=== PATIENT | male | born 1990 | race Two or more races ===

== ENCOUNTER 2025-02-12 18:14 | Inpatient (IN) | payer OTHER ==
[~2025-02-12] VITALS: Ht 170.2 cm; Wt 70.4 kg
--- NOTE | 2025-02-12 18:39 | ED.PDOC ---
General HPI Comments 34-year-old male who came to ER for right flank pains. Started experiencing right flank pains last night progressively worsening today. Noted episode of nausea and vomiting. Denies any dysuria or gross hematuria, but claims relief of pain whenever he urinates. Was seen at a Hospital earlier, diagnosed with kidney stones. Patient transferred here for further evaluation and management. 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 Allergies: Coded Allergies: NO KNOWN ALLERGIES (Unverified , 02/12/25) Home Meds Active Scripts Tamsulosin Hcl (Flomax) 0.4 Mg Cap, 0.4 MG PO QPM for 14 Days, #14 CAP Prov:KELLY SHAVER RESIDENT 02/14/25 Acetaminophen (Acetaminophen) 325 Mg Tab, 650 MG PO Q4HP PRN for 7 Days, #70 TAB Prov:KELLY SHAVER RESIDENT 02/14/25 Information Source: Patient, Emergency Med Personnel Mode of Arrival: EMS Severity: Moderate Inability to void: Mild Timing: Hours Duration: Intermittent Has not urinated for: Minutes Prehospital treatment: None Onset: Spontaneous Symptoms: Urgency History of: None Location: (R) Flank associated signs and symptoms: Nausea, Vomiting, Flank Pain, Urgency Past Medical History PAST MEDICAL HISTORY: Denies Surgical History: Denies all surgeries Family History Family History: Reviewed,noncontributory to illness Social History Smoker: Non-Smoker Alcohol: Denies ETOH Use Drugs: Denies Drug Use Lives In: Home Constitutional: denies: chills, diaphoresis, fatigue, fever, malaise, sweats, weakness, others EENTM: denies: blurred vision, double vision, ear bleeding, ear discharge, ear drainage, ear pain, ear ringing, eye pain, eye redness, hearing loss, mouth pain, mouth swelling, nasal discharge, nose bleeding, nose congestion, nose pain, photophobia, tearing, throat pain, throat swelling, voice changes, others Respiratory: denies: cough, hemoptysis, orthopnea, SOB at rest, shortness of breath, SOB with excertion, stridor, wheezing, others Cardiovascular: denies: chest pain, dizzy spells, diaphoresis, Dyspnea on exertion, edema, irregular heart beat, left arm pain, lightheadedness, palpitations, PND, syncope, others Gastrointestinal: denies: abdomen distended, abdominal pain, blood streaked bowels, constipated, diarrhea, dysphagia, difficulty swallowing, hematemesis, melena, nausea, poor appetite, poor fluid intake, rectal bleeding, rectal pain, vomiting, others Genitourinary: reports: flank pain (right); denies: burning, dysuria, frequen cy, hematuria, incontinence, penile discharge, penile sore, pain, testicle pain, testicle swelling, urgency, others Neurological: denies: dizziness, fainting, headache, left sided numbness, left sided weakness, numbness, paresthesia, pre-existing deficit, right sided numbness, right sided weakness, seizure, speech problems, tingling, tremors, weakness, others Musculoskeletal: denies: back pain, gout, joint pain, joint swelling, muscle pain, muscle stiffness, neck pain, others Integumetry: denies: bruises, change in color, change in hair/nails, dryness, laceration, lesions, lumps, rash, wounds, others Allergic/Immunocompromised: denies: Difficulty Healing, Frequent Infections, Hives, Itching, others Hematologic/Lymphatic: denies: anemia, blood clots, easy bleeding, easy bruisi ng, swollen glands, others Endocrine: denies: excessive hunger, excessive sweating, excessive thirst, exce ssive urination, flushing, intolerance to cold, intolerance to heat, unexplained weight gain, unexplained weight loss, others Psychiatric: denies: anxiety, bipolar disorder, depression, hopeless, panic disorder, schizophrenia, sleepless, suicidal, others Physical Exam General Appearance: No Apparent Distress, Normal HEENT: Normal ENT Inspection, Pharynx Normal, TMs Normal Neck: Full Range of Motion, Non-Tender, Normal, Normal Inspection Respiratory: Chest Non-Tender, Lungs Clear, No Accessory Muscle Use, No Respi ratory Distress, Normal Breath Sounds Cardiovascular: No Edema, No JVD, No Murmur, No Gallop, Normal Peripheral Pulses, Regular Rate/Rhythm Breast Exam: Deferred Gastrointestinal: No Organomegaly, Non Tender, No Pulsatile Mass, Normal Bowel Sounds, Soft Genitalia: Deferred Pelvic: Deferred Rectal: Deferred Extremities: No calf tenderness, Normal capillary refill, Normal inspection, Normal range of motion, Non-tender, No pedal edema Musculoskeletal : Apperance: Normal Neurologic: Alert, label drier II-XII nml as Tested, No Motor Deficits, Normal Affect, Normal Mood, No Sensory Deficits Cerebellar Function: Normal Reflexes: Normal Skin: Dry, Normal Color, Warm Lymphatic: No Adenopathy Was a procedure done? Was a procedure done?: No Differential Diagnosis Kidney stone (Female): N/A Kidney stone (Male): Pyelonephritis, Renal failure, Strain, Urinary obstruction, Urolithiasis, Renal infarction, Urinary tract infection Urinary Problem (Male): Urethritis, Urinary Retention, Urolithiasis, UTI X-Ray, Labs, Meds, VS Vital Signs Date Time Temp Pulse Resp B/P (MAP) Pulse Ox O2 Delivery O2 Flow Rate FiO2 02/12/25 19:36 98.1 70 15 120/84 (96) 95 98.1 02/12/25 19:36 72 15 96 Room Air* 0 21 02/12/25 18:50 98.2 70 12 120/74 (89) 97 98.2 02/12/25 18:50 68 16 97 Room Air* 0 21 02/12/25 18:34 98.2 70 18 107/77 (87) 98 98.2 Lab Test 02/12/25 18:59 02/12/25 18:44 Range/Units Urine Color Colorless Yellow Urine Clarity Clear Clear Urine pH 5.5 5.0-9.0 Urine Specific [place] 1.005 1.001-1.035 Urine Protein Negative Negative Urine Ketones Negative Negative Urine Blood Negative Negative /uL Urine Nitrite Negative Negative Urine Bilirubin Negative Negative Urine Urobilinogen Normal Negative mg/dL Urine Leukocyte Esterase Negative Negative /uL Urine RBC None seen 0 - 3 /hpf Urine Microscopic WBC 1 0-3 /HPF Urine Squamous Epithelial Cells None seen <5 /hpf Urine Bacteria None seen None Seen /hpf Urine Glucose Normal Normal mg/dL White Blood Count 10.0 4.4-10.8 10^3/uL Red Blood Count 5.08 4.5-5.90 10^6/uL Hemoglobin 14.9 13.5-17.5 g/dL Hematocrit 43.5 41.0-53.0 % Mean Corpuscular Volume 85.7 80.0-100.0 fL Mean Corpuscular Hemoglobin 29.3 28.0-32.0 pg Mean Corpuscular Hemoglobin Concent 34.2 32.0-36.0 g/dL Red Cell Distribution Width 12.7 11.8-14.3 % Platelet Count 217 140-450 10^3/uL Mean Platelet Volume 7.2 6.9-10.8 fL Neutrophils (%) (Auto) 70.1 37.0-80.0 % Lymphocytes (%) (Auto) 18.4 10.0-50.0 % Monocytes (%) (Auto) 10.5 0.0-12.0 % Eosinophils (%) (Auto) 0.8 0.0-7.0 % Basophils (%) (Auto) 0.2 0.0-2.0 % Neutrophils # (Auto) 7.0 1.6-8.6 10 ^3/uL Lymphocytes # (Auto) 1.8 0.4-5.4 10 ^3/uL Monocytes # (Auto) 1.0 0-1.3 10 ^3/uL Eosinophils # (Auto) 0.1 0-0.8 10 ^3/uL Basophils # (Auto) 0 0-0.2 10 ^3/uL Nucleated Red Blood Cells 0.1 % Sodium Level 143 136-145 mmol/L Potassium Level 4.4 3.5-5.1 mmol/L Chloride Level 111 H 98-107 mmol/L Carbon Dioxide Level 25 20-31 mmol/L Anion Gap 7 5-15 Blood Urea Nitrogen 14 9-23 mg/dL Creatinine 1.70 H 0.700-1.30 mg/dL Glomerular Filtration Rate Calc 54 >90 mL/min BUN/Creatinine Ratio 8.2 L 10.0-20.0 Serum Glucose 98 74-106 mg/dL Calcium Level 9.0 8.7-10.4 mg/dL Time of 1ST Reevaluation: 18:27 Reevaluation 1ST: Unchanged Patient Education/Counseling: Diagnosis, Treatment Family Education/Counseling: No Family Present Departure 1 Departure Time of Disposition: 18:03 (Patient with an FIDE and acute flank pain. We will admit patient for workup) Impression: Primary Impression: FIDE (acute kidney injury) Additional Impression: Flank pain Disposition: 09 ADMITTED INPATIENT Admit to: Med Surg Condition: Serious e-Prescriptions Tamsulosin Hcl (Flomax) 0.4 Mg Cap 0.4 MG PO QPM for 14 Days, #14 CAP Prov: KELLY SHAVER RESIDENT 02/14/25 Acetaminophen (Acetaminophen) 325 Mg Tab 650 MG PO Q4HP PRN for 7 Days, #70 TAB Prov: EHSAN SHAVERNA RESIDENT 02/14/25 Critical Care Note Critical Care Time?: Yes Critical care comment: Intractable flank pain Authorized and Performed by: Alexandr Blair MD Total critical care time: Approximately 42 minutes Due to a high probability of clinically significant, life threatening deteriora tion, the patient required my highest level of preparedness to intervene emergently and I personally spent this critical care time directly and personally managing the patient. This critical care time included obtaining a history; examining the patient; pulse oximetry; ordering and review of studies; arranging urgent treatment with development of a management plan; evaluation of patient's response to treatment; frequent reassessment; and, discussions with other providers. This critical care time was performed to assess and manage the high probability of imminent, life-threatening deterioration that could result in multi-organ failure. It was exclusive of separately billable procedures and treating other patients and teaching time. Please see my other sections and the rest of the note for further information on patient assessment and treatment. Stability Stability form required: No Heart Score Heart Score: Heart Score Response (Comments) Value History N/A 0 EKG N/A 0 Age N/A 0 Risk Factors N/A 0 Troponin N/A 0 Total 0 I personally scribed for ALEXANDR BLAIR MD ([email or web address]) on 02/12/25 at 18:39. Electronically submitted by Mac Mota ([email or web address]). ALEXANDR BLAIR MD February 12, 2025 18:39
[2025-02-12 18:50] VITALS: PULSE 68; RESP 16; O2SAT 97
[2025-02-12] MEDS: SODIUM CHLORIDE 0.9% 1,000 ML IV ONE (18:50)
[2025-02-12 18:54] LABS: Basophils # (auto) 0 10 ^3/uL (0-0.2); Basophils % (auto) 0.2 % (0.0-2.0); Eosinophils # (auto) 0.1 10 ^3/uL (0-0.8); Eosinophils % (auto) 0.8 % (0.0-7.0); Hematocrit 43.5 % (41.0-53.0); Hemoglobin 14.9 g/dL (13.5-17.5); Lymphocytes # (auto) 1.8 10 ^3/uL (0.4-5.4); Lymphocytes % (auto) 18.4 % (10.0-50.0); Mean Corpuscular Hemoglobin 29.3 pg (28.0-32.0); Mean Corpuscular Hgb Conc. 34.2 g/dL (32.0-36.0); Mean Corpuscular Volume 85.7 fL (80.0-100.0); Monocytes % (auto) 10.5 % (0.0-12.0); Neutrophils % (auto) 70.1 % (37.0-80.0); Nucleated Red Blood Cells % 0.1 %; Platelet Count (auto) 217 10^3/uL (140-450); Red Blood Cells 5.08 10^6/uL (4.5-5.90); Red Cell Distribution Width 12.7 % (11.8-14.3)
[2025-02-12 19:06] LABS: Chloride 111 mmol/L (98-107); Potassium 4.4 mmol/L (3.5-5.1); Sodium 143 mmol/L (136-145)
[2025-02-12 19:07] LABS: Urine Bacteria None Seen /hpf (None Seen)
[2025-02-12 19:07] LABS: Anion Gap 7 (5-15); Carbon Dioxide 25 mmol/L (20-31)
[2025-02-12 19:12] LABS: BUN/Creatinine Ratio 8.2 (10.0-20.0); Blood Urea Nitrogen 14 mg/dL (9-23); Glucose 98 mg/dL (74-106)
[2025-02-12 19:17] LABS: Urine Blood Negative /uL (Negative); Urine Clarity Clear (Clear); Urine Color Colorless (Yellow); Urine Protein, UAD Negative (Negative); Urine Specific Gravity 1.005 (1.001-1.035); Urine Squamous Epithelial Cell None Seen /hpf (<5); Urine Urobilinogen Normal (Negative); Urine WBC 1 /HPF (0-3); Urine pH 5.5 (5.0-9.0)
[2025-02-12 19:36] VITALS: PULSE 72; RESP 15; O2SAT 96
[2025-02-12] MEDS ORDERED: DOCUSATE SOD 100 MG CAP PO PRN (20:45)
[2025-02-12] MEDS ORDERED: ONDANSETRON HCL 4 MG/2 ML VIAL IV PRN (20:45)
--- NOTE | 2025-02-12 21:18 | DVHHP2 ---
History of Present Illness Reason for Visit: Acute renal injury History of Present Illness The patient is a 34-year-old male who denies past medical history presented to [facility] ED with complaint of right flank pain. Patient reports he has been experiencing right flank pain for the past 1 day progressively get wo rse today that prompted this visit. Patient was seen and evaluated in the ED, laboratory data shows WBC 10.0, platelets 217, sodium 143, potassium 4.4, BUN 14, creatinine 1.70, glucose 98. Please see medication orders section in the computer. On my assessment, the patient denied chest pain, no headache, no dizziness, no diaphoresis, no shortness of breaths, no nausea, no vomiting, no fever, no chills. No other modifying factor or other associated signs and symptoms noted. The patient was admitted to the hospital for further evaluation and medical management. Past Medical History Denies past medical history Past Surgical History Denies all surgeries Family History Reviewed, noncontributory to the management of this case. Past Social History The patient lives at home, denies smoking, alcohol or illicit drugs abuse. Review of Systems Constitutional: No: Fever, Chills, Sweats, Weakness, Malaise, Other Eyes: No: Pain, Vision change, Conjunctivae inflammation, Eyelid inflammation, Other, Redness ENT: No: Ear pain, Ear discharge, Nose pain, Nose discharge, Nose congestion, Mouth pain, Mouth swelling, Throat pain, Throat swelling, Other Respiratory: No: Cough, Dry, Shortness of breath, SOB with excertion, Wheezing, Hemoptysis, Pleuritic Pain, Sputum, Wheezing, Other Cardiovascular: No: Chest Pain, Palpitations, Orthopnea, Paroxysmal Noc. Dyspnea, Edema, Lt Headedness, Other Gastrointestinal: No: Nausea, Vomiting, Abdominal Pain, Diarrhea, Constipation, Melena, Hematochezia, Other Genitourinary: No Dysuria, No Frequency, No Incontinence, No Hematuria, No Retention; Other (Flank pain) Musculoskeletal: No: other, neck pain, shoulder pain, arm pain, back pain, hand pain, leg pain, foot pain Skin: No: Rash, Lesions, Jaundice, Bruising, Other Neurological: No: Weakness, Numbness, Incoordination, Change in speech, Confusi on, Seizures, Other Allergies: Coded Allergies: NO KNOWN ALLERGIES (Unverified , 02/12/25) Medications Current Medications Medications Dose Ordered Sig/Kari Route Start Time Stop Time Status Last Admin Dose Admin Sodium Chloride 10 ml Q8HR IV 02/12/25 22:00 Acetaminophen/ Hydrocodone Bitart 1 tab Q4HP PRN PO 02/12/25 20:45 Ondansetron HCl 4 mg Q4HP PRN IV 02/12/25 20:45 Docusate Sodium 100 mg BIDPRN PRN PO 02/12/25 20:45 Acetaminophen 650 mg Q6HP PRN PO 02/12/25 20:45 Morphine Sulfate 2 mg Q4HPRN PRN IV 02/12/25 21:00 Exam Vital Signs Vital Signs Date Time Temp Pulse Resp B/P (MAP) Pulse Ox O2 Delivery O2 Flow Rate FiO2 02/12/25 19:36 98.1 70 15 120/84 (96) 95 98.1 02/12/25 19:36 Room Air* 0 21 General Appearance: Alert, Oriented X3, Cooperative, No acute distress HEENT: Atraumatic, PERRLA, EOMI, Mucous membr. moist/pink Respiratory: Clear to auscultation, Normal air movement Cardiovascular: Regular rate, Normal S1, Normal S2, No murmurs Abdominal: Normal bowel sounds, Soft, No tenderness, No hepatospenomegaly, No masses Extremities: No clubbing, No cyanosis, No edema, Normal pulses, No tenderness/swelling Skin: No rashes, No breakdown, No significant lesion Neuro: Normal gait, Normal speech, Strength at 5/5 X4 ext, Normal tone, Sensation intact, Cranial nerves 3-12 NL, Reflexes 2+ Psych/Mental Status: Mental status NL, Mood NL Labs/Xrays Labs Test 02/12/25 18:59 02/12/25 18:44 Range/Units Urine Color Colorless Yellow Urine Clarity Clear Clear Urine pH 5.5 5.0-9.0 Urine Specific [place] 1.005 1.001-1.035 Urine Protein Negative Negative Urine Ketones Negative Negative Urine Blood Negative Negative /uL Urine Nitrite Negative Negative Urine Bilirubin Negative Negative Urine Urobilinogen Normal Negative mg/dL Urine Leukocyte Esterase Negative Negative /uL Urine RBC None seen 0 - 3 /hpf Urine Microscopic WBC 1 0-3 /HPF Urine Squamous Epithelial Cells None seen <5 /hpf Urine Bacteria None seen None Seen /hpf Urine Glucose Normal Normal mg/dL White Blood Count 10.0 4.4-10.8 10^3/uL Red Blood Count 5.08 4.5-5.90 10^6/uL Hemoglobin 14.9 13.5-17.5 g/dL Hematocrit 43.5 41.0-53.0 % Mean Corpuscular Volume 85.7 80.0-100.0 fL Mean Corpuscular Hemoglobin 29.3 28.0-32.0 pg Mean Corpuscular Hemoglobin Concent 34.2 32.0-36.0 g/dL Red Cell Distribution Width 12.7 11.8-14.3 % Platelet Count 217 140-450 10^3/uL Mean Platelet Volume 7.2 6.9-10.8 fL Neutrophils (%) (Auto) 70.1 37.0-80.0 % Lymphocytes (%) (Auto) 18.4 10.0-50.0 % Monocytes (%) (Auto) 10.5 0.0-12.0 % Eosinophils (%) (Auto) 0.8 0.0-7.0 % Basophils (%) (Auto) 0.2 0.0-2.0 % Neutrophils # (Auto) 7.0 1.6-8.6 10 ^3/uL Lymphocytes # (Auto) 1.8 0.4-5.4 10 ^3/uL Monocytes # (Auto) 1.0 0-1.3 10 ^3/uL Eosinophils # (Auto) 0.1 0-0.8 10 ^3/uL Basophils # (Auto) 0 0-0.2 10 ^3/uL Nucleated Red Blood Cells 0.1 % Sodium Level 143 136-145 mmol/L Potassium Level 4.4 3.5-5.1 mmol/L Chloride Level 111 H 98-107 mmol/L Carbon Dioxide Level 25 20-31 mmol/L Anion Gap 7 5-15 Blood Urea Nitrogen 14 9-23 mg/dL Creatinine 1.70 H 0.700-1.30 mg/dL Glomerular Filtration Rate Calc 54 >90 mL/min BUN/Creatinine Ratio 8.2 L 10.0-20.0 Serum Glucose 98 74-106 mg/dL Calcium Level 9.0 8.7-10.4 mg/dL Assessment/Plan Assessment/Plan Right flank pain Acute renal injury Plan 1. Admit to med surge unit 2. Breathing treatment 3. Pain control management 4. Management of fluids and electrolytes 5. Consultation for hospitalist 6. Diagnostic tests chest x-ray 7. DVT prophylaxis on SCDs 8. Repeat labs CBC, CMP in a.m. 9. Continue with current medical management 10. Treatment plan discussed with patient and RN. Patient verbalized understanding. Plan discussed with: Patient, Other (RN) My Orders Orders - SHERRELL SWAN DNP Procedure Category Date Status Time *Dr. Dustin Massey CONS 02/12/25 Transmitted -[place] 20:44 Allergies FELIX 02/12/25 In Process 20:44 Code Status CODE 02/12/25 Transmitted 20:44 Sodium Chloride Lock PHA 02/12/25 In Process (Saline Lock Ns) 22:00 Oxygen Per Hour RT 02/12/25 Transmitted 20:44 Hydrocodone-Acet PHA 02/12/25 In Process 5/325mg Tab ([place] 20:45 Ondansetron Hcl PHA 02/12/25 In Process (Zofran) 20:45 Docusate Sodium PHA 02/12/25 In Process Capsule ([place] 20:45 Complete Blood Count LAB 02/13/25 Verified 04:00 Comprehensive LAB 02/13/25 Verified Metabolic Panel 04:00 Cardiac DIET 02/13/25 Transmitted Diet-2gna,Lofat,Lochol Breakfast Condition: Serious FELIX 02/12/25 In Process 20:44 Acetaminophen Tablet PHA 02/12/25 In Process (Tylenol Tablet) 20:45 Bedrest With Bathroom FELIX 02/12/25 In Process Privileg 20:44 Sequential FELIX 02/12/25 In Process Compression Device Morphine Sulfate PHA 02/12/25 In Process Injection 21:00 Problem List: (1) Right flank pain (2) Acute renal injury Date of Service: February 12, 2025 Billing Provider: SHERRELL SWAN DNP Common Visit Codes: [id number] INP/OBS CARE (MOD) SHERRELL SWAN DNP February 12, 2025 21:18
[2025-02-12] MEDS ORDERED: MORPHINE SULFATE INJ 2 MG/ml SYRG IV PRN (21:30)
[2025-02-12] MEDS ORDERED: NITROGLYCERIN 0.4 MG SL TAB SL PRN (21:30)
[2025-02-12] MEDS: SODIUM CHLOR 0.9% PF (SALINE LOCK) 10ML VIAL/SYR IV SCH (22:07)
[2025-02-12] MEDS: ACETAMINOPHEN 325 MG TAB PO PRN (23:47)
[2025-02-12 23:52] VITALS: BP 119/77; PULSE 69; RESP 16; TEMP 97.7; O2SAT 98
[2025-02-13] VITALS (7 sets, daily range): BP systolic 108–139; BP diastolic 58–92; PULSE 69–89; RESP 14–18; TEMP 97.7–98.7; O2SAT 94–100
[2025-02-13] MEDS: HYDROcodone-ACET 5/325MG TAB PO PRN ×3 (00:29→18:08)
[2025-02-13 06:19] LABS: Basophils # (auto) 0.1 10 ^3/uL (0-0.2); Basophils % (auto) 0.5 % (0.0-2.0); Eosinophils # (auto) 0.3 10 ^3/uL (0-0.8); Eosinophils % (auto) 2.7 % (0.0-7.0); Hematocrit 40.3 % (41.0-53.0); Lymphocytes # (auto) 2.8 10 ^3/uL (0.4-5.4); Lymphocytes % (auto) 29.7 % (10.0-50.0); Mean Corpuscular Hemoglobin 29.5 pg (28.0-32.0); Mean Corpuscular Hgb Conc. 34.8 g/dL (32.0-36.0); Monocytes # (auto) 1.1 10 ^3/uL (0-1.3); Monocytes % (auto) 11.6 % (0.0-12.0); Neutrophils # (auto) 5.2 10 ^3/uL (1.6-8.6); Neutrophils % (auto) 55.5 % (37.0-80.0); Platelet Count (auto) 203 10^3/uL (140-450); Red Blood Cells 4.75 10^6/uL (4.5-5.90); Red Cell Distribution Width 12.9 % (11.8-14.3); White Blood Cell 9.4 10^3/uL (4.4-10.8)
[2025-02-13 06:38] LABS: Alanine Aminotransferase 32 U/L (7-40); Albumin 3.7 g/dL (3.2-4.8); Alkaline Phosphatase 50 U/L (46-116); Anion Gap 8 (5-15); Aspartate Aminotransferase 24 U/L (13-40); BUN/Creatinine Ratio 7.8 (10.0-20.0); Blood Urea Nitrogen 13 mg/dL (9-23); Calcium 9.1 mg/dL (8.7-10.4); Carbon Dioxide 24 mmol/L (20-31); Glucose 94 mg/dL (74-106); Potassium 4.2 mmol/L (3.5-5.1); Sodium 143 mmol/L (136-145); Total Protein 5.9 g/dL (5.7-8.2)
[2025-02-13 06:39] LABS: Bilirubin, Total 0.7 mg/dL (0.2-1.0); Chloride 111 mmol/L (98-107)
[2025-02-13] MEDS: MORPHINE SULFATE INJ 2 MG/ml SYRG IV PRN (06:48)
--- NOTE | 2025-02-13 11:06 | DVH ---
US KIDNEY HISTORY: rule out stone, obstruction COMPARISON: None TECHNIQUE: Transverse and longitudinal grayscale and color doppler images were obtained of the kidney s and bladder. FINDINGS: Right kidney: Size: 12 cm Cortical thickness: Normal Echogenicity: Normal Stones: None Masses: None Hydronephrosis: yes Ureters: Not well visualized. Other: None Left kidney: Size: 11 cm Cortical thickness: Normal Echogenicity: Normal Stones: None Masses: None Hydronephrosis: None Ureters: Not well visualized. Other: None Bladder: Possible bladder stone Other: None. IMPRESSION: Possible small 0.7 cm bladder stone. Mild right renal hydronephrosisl.
[2025-02-13] MEDS: TAMSULOSIN HYDROCHLORIDE 0.4 MG CAP PO ONE (12:32)
[2025-02-13] MEDS: SODIUM CHLORIDE 0.9% 1,000 ML IV SCH (12:35)
[2025-02-13] MEDS ORDERED: ACETAMINOPHEN 325 MG TAB PO PRN (13:15)
--- NOTE | 2025-02-13 14:02 | DVHPNRES ---
Progress Note Date Seen: February 13, 2025 Resident Creating Document: KELLY SHAVER RESIDENT Has the PT tested + for MRSA If YES, has PT been informed?: No Medical Necessity Reason Pt with a Central, PICC or Fol: No Medical Necessity Reason History of Present Illness The patient is a 34-year-old male who denies past medical history presented to [facility] ED with complaint of right flank pain. Patient reports he has been experiencing right flank pain for the past 1 day progressively get worse today that prompted this visit. Patient was seen and evaluated in the ED, laboratory data shows WBC 10.0, platelets 217, sodium 143, potassium 4.4, BUN 14, creatinine 1.70, glucose 98. Please see medication orders section in the computer. On my assessment, the patient denied chest pain, no headache, no dizziness, no diaphoresis, no shortness of breaths, no nausea, no vomiting, no fever, no chills. No other modifying factor or other associated signs and symptoms noted. The patient was admitted to the hospital for further evaluation and medical management. Past Medical History: Denies past medical history Past Surgical History: Denies all surgeries Family History: Reviewed, noncontributory to the management of this case. Past Social History:The patient lives at home, denies smoking, alcohol or illicit drugs abuse. PN: 02/13/2025 Patient is a 34-year-old male with no known past medical history presented to the ED with chief complaint of right flank pain. According to the patient it started with lower back pain, then to his lower abdomen. The thought he might having a UTI. But by the next day, he started having the right flank pain with radiation to his groin. The pain was severe colicky in nature and with radiation to the groin. There was no associated hematuria or turbinate hematuria there was no discharges there was no fever there was no chills. Patient has been intermittent only with his no extra or face. Thus patient reported to his [facility] [place] patient had a scan done then which revealed a bilateral nephrolithiasis however the right nephrolithiasis was notable for obstruction in the ureterovesical junction causing hydronephrosis on the right side thus patient was referred to deviate for further evaluation. In the ED, patient does have right abdominal pain however his vitals were grossly unremarkable, lab work revealed normal WBC however this elevated creatinine of 1.7 and renal US showed Possible small 0.7 cm bladder stone. Mild right renal hydronephrosisl. Started on fluid, pain medications and tamsulosin. Urology has been consulted for evaluation. Subjective Review of Systems Constitutional: Denies fever no chills, uncomfortable HEENT: Denies headache, ear pain, ear discharges, conjunctivitis, nasal discharge throat pain Cardiovascular: Denies chest pain, palpitation, orthopnea, PND, or pedal edema Respiratory: Denies shortness of breath, cough cough, sputum production, hemoptysis, GI: Denies abdominal pain, nausea, vomiting, diarrhea, hematemesis, hematochezia, : right flank pain, lower abdominal pain Endocrine: Denies unintentional weight gain or weight loss, feeling of hot flashes, Harris: Denies easy bruising, bleeding disorders, epistaxis Musculoskeletal: Denies joint pains, muscle aches Psych: No evidence of depression, yeimi, suicidal ideation Objective vital signs Vital Sign Date Time Temp Pulse Resp B/P (MAP) Pulse Ox O2 Delivery O2 Flow Rate FiO2 02/13/25 09:00 97.7 72 16 115/80 (92) 97 97.7 02/12/25 23:52 Room Air* 0 21 Total Intake and Output 02/12/25 02/12/25 02/13/25 15:00 23:00 07:00 Intake Total 400 ml Balance 400 ml medications Current Medications Medications Dose Ordered Sig/Kari Route Start Time Stop Time Status Last Admin Dose Admin Sodium Chloride 10 ml Q8HR IV 02/12/25 22:00 02/13/25 06:13 10 ML Ondansetron HCl 4 mg Q4HP PRN IV 02/12/25 20:45 Docusate Sodium 100 mg BIDPRN PRN PO 02/12/25 20:45 Morphine Sulfate 2 mg Q4HPRN PRN IV 02/12/25 21:00 Hold 02/13/25 06:48 2 MG Nitroglycerin 0.4 mg Q5MINP PRN SL 02/12/25 21:30 Morphine Sulfate 2 mg Q30M PRN IV 02/12/25 21:30 Sodium Chloride 1,000 ml @ 125 mls/hr Q8H IV 02/13/25 10:45 02/13/25 12:35 125 MLS/HR Tamsulosin HCl 0.4 mg QPM PO 02/13/25 18:00 Acetaminophen/ Hydrocodone Bitart 1 tab Q6HPRN PRN PO 02/13/25 13:15 Acetaminophen 650 mg Q4HP PRN PO 02/13/25 13:15 Acetaminophen/ Hydrocodone Bitart 1 tab Q4HP PRN PO 02/13/25 13:45 Examination General Appearance: Alert, Oriented X3, Cooperative, Mild-moderate distress HEENT: Atraumatic, PERRLA, EOMI, Mucous membrane moist/pink Respiratory: Clear to auscultation, Normal air movement Cardiovascular: Regular rate, Normal S1, Normal S2, No murmurs, no chest wall tenderness Abdominal: NO distention, LOWER abdominal tenderness, bowel sounds present, no scars noted Extremities: No clubbing, No cyanosis, No edema, Normal pulses, No tenderness/swelling Skin: No rashes, No breakdown, No significant lesion Neuro: Normal gait, Normal speech, Strength at 5/5 X4 ext, Normal tone, Sensation intact, Cranial nerves 3-12 NL, Reflexes 2+ Psych/Mental Status: Mental status NL, Mood NL laboratory and microbiology Laboratory Tests 02/13/25 06:01 Test 02/13/25 06:01 Range/Units Serum Glucose 94 74-106 mg/dL Problem List/Assessment/Plan Problem List/Assessment/Plan Assessment and plan Right flank pain likely secondary to obstructive nephrolithiasis --> Renal US: Possible small 0.7 cm bladder stone. Mild right renal hydronephrosis --> Pain management --> Fluid --> Strain urine --> Urology consult Hydronephrosis --> due to obstructive uropathy FIDE likely due to ureterovesicle junction obstruction --> Cr:1.71--> 1.67 Goal of care discussed for more than 25 minute full code Case and plan discussed with Dr. Garber Plan discussed with: Patient My Orders My Orders Orders - KELLY SHAVER RESIDENT Procedure Category Date Status Time Kidney US 02/13/25 Resulted 08:10 * Urology Consult CONS 02/13/25 Transmitted 10:31 Sodium Chloride 0.9% PHA 02/13/25 In Process 10:45 Tamsulosin PHA 02/13/25 In Process Hydrochloride (Flomax) 18:00 Hydrocodone-Acet PHA 02/13/25 In Process 5/325mg Tab ([place] 13:15 Acetaminophen Tablet PHA 02/13/25 In Process (Tylenol Tablet) 13:15 Strain All Urine For [facility] 02/13/25 In Process Stones 13:14 KELLY SHAVER RESIDENT February 13, 2025 14:02
[2025-02-13] MEDS: TAMSULOSIN HYDROCHLORIDE 0.4 MG CAP PO SCH (18:09)
[2025-02-14 00:47] VITALS: BP 124/87; PULSE 72; RESP 16; TEMP 98.1; O2SAT 98
[2025-02-14 05:00] VITALS: BP 122/81; PULSE 68; RESP 16; TEMP 98.2; O2SAT 96
[2025-02-14 06:42] LABS: Anion Gap 8 (5-15); Carbon Dioxide 25 mmol/L (20-31); Potassium 3.5 mmol/L (3.5-5.1); Sodium 144 mmol/L (136-145)
[2025-02-14 06:43] LABS: Calcium 9.1 mg/dL (8.7-10.4)
[2025-02-14 06:48] LABS: BUN/Creatinine Ratio 11.2 (10.0-20.0); Blood Urea Nitrogen 12 mg/dL (9-23); Chloride 111 mmol/L (98-107); Glucose 92 mg/dL (74-106)
[2025-02-14 09:00] VITALS: BP 117/74; PULSE 78; RESP 16; TEMP 98.2; O2SAT 97
--- NOTE | 2025-02-14 11:02 | DVHINCON2 ---
Date of service: February 14, 2025 Referring Physician hospitalist Reason for Consultation kidney stone History of Present Illness History Source: Patient, RN Notes, MD Notes Exam Limitations: No limitations HPI 34-year-old male with no known past medical history presented to the ED with chief complaint of right flank pain. According to the patient it started with lower back pain, then to his lower abdomen. The thought he might having a UTI. But by the next day, he started having the right flank pain with radiation to his groin. The pain was severe colicky in nature and with radiation to the groin. There was no associated hematuria or turbinate hematuria there was no discharges there was no fever there was no chills. Patient has been intermitten t only with his no extra or face. Thus patient reported to his [facility] patient had a scan done then which revealed a bilateral nephrolithiasis however the right nephrolithiasis was notable for obstruction in the ureterovesical junction causing hydronephrosis on the right side thus patient was referred to deviate for further evaluation. In the ED, patient does have right abdominal pain however his vitals were grossly unremarkable, lab work revealed normal WBC however this elevated creatinine of 1.7 and renal US showed Possible small 0.7 cm bladder stone. Mild right renal hydronephrosisl. Started on fluid, pain medications and tamsulosin. Urology has been consulted for evaluation. Home Meds No Active Prescriptions or Reported Meds Past Medical History Cardiac: No pertinent Hx Pulmonary: No pertinent Hx Central Nervous System: No pertinent Hx GI: No pertinent Hx Hemotology/Oncology: No pertinent Hx Hepatobiliary: No pertinent Hx Psychiatric: No pertinent Hx Musculoskeletal: No pertinent Hx Rheumotologic: No pertinent Hx Infectious Disease: No peritnent Hx ENT: No pertinent Hx Renal/: No pertinent Hx Endocrine: No pertinent Hx Dermatology: No pertinent Hx Patient Family History: Patient reports no known family medical history. Review of Systems Constitutional: No symptom reported Ears, Nose, & Throat: No symptom reported Eyes: No symptom reported Pulmonary/Respiratory: No symptom reported Cardiovascular: No symptom reported Gastrointestinal: No symptom reported Genitourinary: No symptom reported Musculoskeletal: No symptom reported Skin: No symptom reported Psychiatric: No symptom reported Endocrine: No symptom reported Hemotologic/Lymphatic: No symptom reported H&P Exam Vital Signs Vital Signs Date Time Temp Pulse Resp B/P (MAP) Pulse Ox O2 Delivery O2 Flow Rate FiO2 02/14/25 09:00 98.2 78 16 117/74 (88) 97 98.2 02/14/25 08:00 Room Air* 0 21 General Appeara: Well developed, Well nourished, Normal Appearance Neuro/Mental St: Alert, Oriented Appearance: Appropriate appearance, Appropriate insight Eye contact/ Speech: Cooperative, Good eye contact, Normal speech Skin Exam: Normal inspection, Normal color, Warm/dry Labs/Xrays [address] [address] Ph: [phone] DIAGNOSTIC IMAGING Diagnostic Imaging Report : [id number] Signed PATIENT: JEFFERY PEDRAZACCT: [id number] UNIT: [id number] : 1990 LOC: [facility] ROOM / BED: [facility] / A AGE / SEX: 34 / M ADM STATUS: ADM IN SERVICE 0810 ORDERING PHYSICIAN: KELLY SHAVER RESIDENT PROCEDURE(s): KIDUS - KIDNEY REASON: rule out stone, obstruction ORDER NUMBER(s): [id number], ACCESSION NUMBER(s): [id number] KIDNEY HISTORY: rule out stone, obstruction COMPARISON: None TECHNIQUE: Transverse and longitudinal grayscale and color doppler images were obtained of the kidneys and bladder. FINDINGS: Right kidney: Size: 12 cm Cortical thickness: Normal Echogenicity: Normal Stones: None Masses: None Hydronephrosis: yes Ureters: Not well visualized. Other: None Left kidney: Size: 11 cm Cortical thickness: Normal Echogenicity: Normal Stones: None Masses: None Hydronephrosis: None Ureters: Not well visualized. Other: None Bladder: Possible bladder stone Other: None. IMPRESSION: Possible small 0.7 cm bladder stone. Mild right renal hydronephrosisl. ATED BY: MYLES HUMPHREY MD DICTATED DATE/TIME: 02/13/251102 SIGNED BY: MYLES HUMPHREY MD SIGNED DATE/TIME: 02/13/251102 CC: Labs Test 02/14/25 05:52 02/13/25 06:01 02/12/25 18:59 Range/Units Sodium Level 144 136-145 mmol/L Potassium Level 3.5 3.5-5.1 mmol/L Chloride Level 111 H 98-107 mmol/L Carbon Dioxide Level 25 20-31 mmol/L Anion Gap 8 5-15 Blood Urea Nitrogen 12 9-23 mg/dL Creatinine 1.07 0.700-1.30 mg/dL Glomerular Filtration Rate Calc 94 >90 mL/min BUN/Creatinine Ratio 11.2 10.0-20.0 Serum Glucose 92 74-106 mg/dL Calcium Level 9.1 8.7-10.4 mg/dL White Blood Count 9.4 4.4-10.8 10^3/uL Red Blood Count 4.75 4.5-5.90 10^6/uL Hemoglobin 14.0 13.5-17.5 g/dL Hematocrit 40.3 L 41.0-53.0 % Mean Corpuscular Volume 85.0 80.0-100.0 fL Mean Corpuscular Hemoglobin 29.5 28.0-32.0 pg Mean Corpuscular Hemoglobin Concent 34.8 32.0-36.0 g/dL Red Cell Distribution Width 12.9 11.8-14.3 % Platelet Count 203 140-450 10^3/uL Mean Platelet Volume 7.4 6.9-10.8 fL Neutrophils (%) (Auto) 55.5 37.0-80.0 % Lymphocytes (%) (Auto) 29.7 10.0-50.0 % Monocytes (%) (Auto) 11.6 0.0-12.0 % Eosinophils (%) (Auto) 2.7 0.0-7.0 % Basophils (%) (Auto) 0.5 0.0-2.0 % Neutrophils # (Auto) 5.2 1.6-8.6 10 ^3/uL Lymphocytes # (Auto) 2.8 0.4-5.4 10 ^3/uL Monocytes # (Auto) 1.1 0-1.3 10 ^3/uL Eosinophils # (Auto) 0.3 0-0.8 10 ^3/uL Basophils # (Auto) 0.1 0-0.2 10 ^3/uL Nucleated Red Blood Cells 0.0 % Total Bilirubin 0.7 0.2-1.0 mg/dL Aspartate Amino Transferase (AST) 24 13-40 U/L Alanine Aminotransferase (ALT) 32 7-40 U/L Alkaline Phosphatase 50 46-116 U/L Total Protein 5.9 5.7-8.2 g/dL Albumin 3.7 3.2-4.8 g/dL Urine Color Colorless Yellow Urine Clarity Clear Clear Urine pH 5.5 5.0-9.0 Urine Specific [place] 1.005 1.001-1.035 Urine Protein Negative Negative Urine Ketones Negative Negative Urine Blood Negative Negative /uL Urine Nitrite Negative Negative Urine Bilirubin Negative Negative Urine Urobilinogen Normal Negative mg/dL Urine Leukocyte Esterase Negative Negative /uL Urine RBC None seen 0 - 3 /hpf Urine Microscopic WBC 1 0-3 /HPF Urine Squamous Epithelial Cells None seen <5 /hpf Urine Bacteria None seen None Seen /hpf Urine Glucose Normal Normal mg/dL Assessment/Plan Problem List: (1) Right flank pain (2) Acute renal injury (3) Nephrolithiasis Plan expulsive measures encourage fluids pain control outpt f/u 2 weeks Plan discussed with: Patient, Other CHAPO BUNDY NP February 14, 2025 11:02
[2025-02-14 13:00] VITALS: BP 150/93; PULSE 95; RESP 20; TEMP 98.4; O2SAT 96
--- NOTE | 2025-02-14 15:36 | DVHDSRES ---
Discharge Summary Date of Admission Resident Creating Document: KELLY SHAVER RESIDENT February 12, 2025 at 21:16 Date of Discharge: February 14, 2025 Admitting Diagnosis NEPHROLITHIASIS Labs/Diagnostic Data: Laboratory Results Test 02/14/25 05:52 02/13/25 06:01 02/12/25 18:59 Sodium Level 144 mmol/L (136-145) Potassium Level 3.5 mmol/L (3.5-5.1) Chloride Level 111 mmol/L (98-107) Carbon Dioxide Level 25 mmol/L (20-31) Anion Gap 8 (5-15) Blood Urea Nitrogen 12 mg/dL (9-23) Creatinine 1.07 mg/dL (0.700-1.30) Glomerular Filtration Rate Calc 94 mL/min (>90) BUN/Creatinine Ratio 11.2 (10.0-20.0) Serum Glucose 92 mg/dL (74-106) Calcium Level 9.1 mg/dL (8.7-10.4) White Blood Count 9.4 10^3/uL (4.4-10.8) Red Blood Count 4.75 10^6/uL (4.5-5.90) Hemoglobin 14.0 g/dL (13.5-17.5) Hematocrit 40.3 % (41.0-53.0) Mean Corpuscular Volume 85.0 fL (80.0-100.0) Mean Corpuscular Hemoglobin 29.5 pg (28.0-32.0) Mean Corpuscular Hemoglobin Concent 34.8 g/dL (32.0-36.0) Red Cell Distribution Width 12.9 % (11.8-14.3) Platelet Count 203 10^3/uL (140-450) Mean Platelet Volume 7.4 fL (6.9-10.8) Neutrophils (%) (Auto) 55.5 % (37.0-80.0) Lymphocytes (%) (Auto) 29.7 % (10.0-50.0) Monocytes (%) (Auto) 11.6 % (0.0-12.0) Eosinophils (%) (Auto) 2.7 % (0.0-7.0) Basophils (%) (Auto) 0.5 % (0.0-2.0) Neutrophils # (Auto) 5.2 10 ^3/uL (1.6-8.6) Lymphocytes # (Auto) 2.8 10 ^3/uL (0.4-5.4) Monocytes # (Auto) 1.1 10 ^3/uL (0-1.3) Eosinophils # (Auto) 0.3 10 ^3/uL (0-0.8) Basophils # (Auto) 0.1 10 ^3/uL (0-0.2) Nucleated Red Blood Cells 0.0 % Total Bilirubin 0.7 mg/dL (0.2-1.0) Aspartate Amino Transferase (AST) 24 U/L (13-40) Alanine Aminotransferase (ALT) 32 U/L (7-40) Alkaline Phosphatase 50 U/L (46-116) Total Protein 5.9 g/dL (5.7-8.2) Albumin 3.7 g/dL (3.2-4.8) Urine Color Colorless (Yellow) Urine Clarity Clear (Clear) Urine pH 5.5 (5.0-9.0) Urine Specific [place] 1.005 (1.001-1.035) Urine Protein Negative (Negative) Urine Ketones Negative (Negative) Urine Blood Negative /uL (Negative) Urine Nitrite Negative (Negative) Urine Bilirubin Negative (Negative) Urine Urobilinogen Normal mg/dL (Negative) Urine Leukocyte Esterase Negative /uL (Negative) Urine RBC None seen /hpf (0 - 3) Urine Microscopic WBC 1 /HPF (0-3) Urine Squamous Epithelial Cells None seen /hpf (<5) Urine Bacteria None seen /hpf (None Seen) Urine Glucose Normal mg/dL (Normal) Other Laboratory Tests 02/14/25 05:52 02/13/25 06:01 Brief Hx & Hospital Course: History of Present Illness The patient is a 34-year-old male who denies past medical history presented to [facility] ED with complaint of right flank pain. Patient reports he has been experiencing right flank pain for the past 1 day progressively get worse today that prompted this visit. Patient was seen and evaluated in the ED, laboratory data shows WBC 10.0, platelets 217, sodium 143, potassium 4.4, BUN 14, creatinine 1.70, glucose 98. Please see medication orders section in the computer. On my assessment, the patient denied chest pain, no headache, no dizziness, no diaphoresis, no shortness of breaths, no nausea, no vomiting, no fever, no chills. No other modifying factor or other associated signs and symptoms noted. The patient was admitted to the hospital for further evaluation and medical management. Past Medical History: Denies past medical history Past Surgical History: Denies all surgeries Family History: Reviewed, noncontributory to the management of this case. Past Social History:The patient lives at home, denies smoking, alcohol or illicit drugs abuse. Brief Hospital course Patient is a 34-year-old male with no known past medical history presented to the ED right flank pain. Pain was colicky in nature with radiation into the groin. There was no associated hematuria or turbinate hematuria there was no discharges there was no fever there was no chills. Thus patient came to the ED. In the lab work revealed normal WBC creatinine of 1.7 and renal US showed possible small 0.7 cm bladder stone with mild right renal hydronephrosis. Patient started on pain medication, IV fluid and tamsulosin. Yesterday, patient felt he might have passed something not sure if it was a stone. Patient is doing much better today. Creatinine is improved and patient's kidney function is within normal limits again. Started on fluid, pain medications and tamsulosin. Urology saw the patient and recommended outpatient follow up. Overall, patient is doing well. stable to discharge from urology standpoint. Will discharge home today. Review of Systems Constitutional: Denies fever no chills, mild right flank pain HEENT: Denies headache, ear pain, ear discharges, conjunctivitis, nasal discharge throat pain Cardiovascular: Denies chest pain, palpitation, orthopnea, PND, or pedal edema Respiratory: Denies shortness of breath, cough cough, sputum production, hemoptysis, GI: Denies abdominal pain, nausea, vomiting, diarrhea, hematemesis, hematochezia, : right flank pain, lower abdominal pain-Improving Endocrine: Denies unintentional weight gain or weight loss, feeling of hot flashes, Harris: Denies easy bruising, bleeding disorders, epistaxis Musculoskeletal: Denies joint pains, muscle aches Psych: No evidence of depression, yeimi, suicidal ideation Examination General Appearance: Alert, Oriented X3, Cooperative, Mild distress HEENT: Atraumatic, PERRLA, EOMI, Mucous membrane moist/pink Respiratory: Clear to auscultation, Normal air movement Cardiovascular: Regular rate, Normal S1, Normal S2, No murmurs, no chest wall tenderness Abdominal: NO distention, LOWER abdominal tenderness, bowel sounds present, no scars noted Extremities: No clubbing, No cyanosis, No edema, Normal pulses, No tenderness/swelling Skin: No rashes, No breakdown, No significant lesion Neuro: Normal gait, Normal speech, Strength at 5/5 X4 ext, Normal tone, Sensation intact, Cranial nerves 3-12 NL, Reflexes 2+ Psych/Mental Status: Mental status NL, Mood NL Diagnoses Right sided ueterovesicle junction, neprholithiasis Right flank pain likely secondary to obstructive nephrolithiasis Acute Hydroureteric nephrosis due to uretrovesicle junction stone FIDE due to obstructive uropathy Elevated blood pressure due to pain Discharge plan Stable for discharge per urology continue pain management with tylenol Adequate hydration Tamsulosin for 14 days follow up with the Urology Discharge plan discussed with DR. Pizano Consults/Reason for consult Reason for Consultation Obstructive uropathy with hydronephrosis Condition at Discharge: Good Final Diagnosis/Problems List Right sided ueterovescle junction, neprholithiasis Right flank pain likely secondary to obstructive nephrolithiasis Hydronephrosis due to obstructive uropathy FIDE due to obstructive uropathy Elevated blood pressure due to pain Discharge Disposition: Home Discharge Instruct/Medications Diet: Regular Activity: Light activity Follow Up/Referral: 14 days with urology Medications: Tylenol tamsuolosin Discharge Statement: "Patient was advised to return to the ER or call 911 if any headaches, dizziness, shortness of breath, chest pain, abdominal pain, bleeding, fevers, or worsening of medical condition. Patient was counseled about treatment plan, medications, possible side effects, patientverbalized understanding. All questions were answered to the best of my ability. This discharge took greater then 30 minutes in planning, reviewing documentation, counseling the patient, and discussing with other team members." ASSESSMENT ASSESSMENT Assessment Right sided ueterovescle junction, neprholithiasis Right flank pain likely secondary to obstructive nephrolithiasis Hydronephrosis due to obstructive uropathy FIDE due to obstructive uropathy KELLY SHAVER RESIDENT February 14, 2025 15:36
[2025-02-14] MEDS ORDERED: ACET-1882 PO (16:01)
[2025-02-14] MEDS ORDERED: TAMS-35 PO (16:01)
== END 2025-02-14 16:28 | disposition home or self-care (01) | DRG 694 ==
LOC: ER 18:14 → EDBD 18:14 → OVERFLOW 21:16 → WEST WING 23:51
PROVIDERS: ADMIT Student in an Organized Health Care Education/Training Program; ATTEND Emergency Medicine
DX: N13.2 Hydronephrosis with renal and ureteral calculous obstruction (principal); N17.9 Acute kidney failure, unspecified; R79.89 Other specified abnormal findings of blood chemistry; Z79.1 Long term (current) use of non-steroidal anti-inflammatories (NSAID); Z79.899 Other long term (current) drug therapy
CPT/HCPCS: 36415; 76775; 80048; 80053; 81001; 85025; 96360; G0378